=== PATIENT | male | born 1990 | race Caucasian/White ===

== ENCOUNTER 2024-08-09 08:41 | Emergency (ER) | payer OTHER, SELFPAY ==
[2024-08-09 08:43] VITALS: BP 137/96; PULSE 81; RESP 16; TEMP 36.6; O2SAT 97
--- NOTE | 2024-08-09 08:57 | ED_ITS ---
HPI - Wound/Laceration General Chief Complaint: Wound/Laceration Stated Complaint: cut to right side cheek Time Seen by Provider: 08/09/24 08:44 Source: patient Mode of arrival: ambulatory Limitations: no limitations History of Present Illness HPI narrative: This is a 34-year-old male, with no significant past medical history, the apartment complaining of laceration of face. States he was pulling a spring with pliers, when they came free and struck him on the face, below the right eye. He denies eye injury or loss of consciousness. He complains of 6/10 dull pain. He has no other complaints at this time. Related Data Allergies Allergy/AdvReac Type Severity Reaction Status Date / Time No Known Allergies Allergy Verified 08/09/24 08:44 Review of Systems Review of Systems: All systems reviewed & are unremarkable except as noted in HPI and below PMFSH Past Medical History Medical History No significant past medical history Surgical History Surgical History No significant past surgical history Social History Social History Smoking status: Never smoker Alcohol intake: current Substance use: never Exam Narrative: GENERAL: Well-developed, well-nourished, and in no acute distress. HEAD: Normocephalic, There is a 1 cm laceration of the right face approximately 5 cm inferior to the right eye, just lateral to the nose. There is no palpable step-off or crepitus.. EYES: PERRLA and EOMI. ENT: Nares clear, no rhinorrhea or epistaxis. Mucous membranes moist. Oropharynx without tonsillar hypertrophy exudate or other lesions. CHEST: Clear to auscultation. No respiratory distress. No wheezes rales or rhonchi HEART: Regular rate and rhythm. No murmur heard. Normal peripheral pulses. EXTREMITIES: Normal range of motion. No edema. SKIN: Warm, dry, no rash. NEURO: Alert and oriented x3. No focal deficit. Moving all 4 limbs spontaneously PSYCH: Normal mood and affect. Course Course Emergency Course: 08:57 - The patient's laceration was cleaned and closed with skin glue. I do not suspect facial fracture. The patient's extraocular muscles are. He was given a tetanus vaccination. Will discharge with recommendation for primary care follow-up. I discussed the findings and recommendations with the patient. Discussed return and emergency precautions including signs/symptoms of wound infection and deep space facial infection. The patient voiced understanding and agreement with the plan. All questions answered to his satisfaction. Vital Signs Vital signs: Vital Signs Temperature 97.9 F 08/09/24 08:43 Pulse Rate 81 08/09/24 08:43 Respiratory Rate 16 08/09/24 08:43 Blood Pressure 137/96 H 08/09/24 08:43 Pulse Oximetry 97 08/09/24 08:43 Oxygen Delivery Room Air 08/09/24 08:43 Temperature 97.9 F 08/09/24 08:43 Pulse Rate 81 08/09/24 08:43 Respiratory Rate 16 08/09/24 08:43 Blood Pressure 137/96 H 08/09/24 08:43 Pulse Oximetry 97 08/09/24 08:43 Oxygen Delivery Room Air 08/09/24 08:43 Procedures Laceration Laceration 1: Date: 08/09/24 Time: 08:45 Site: face Side (If applicable): right Size (cm): 1 Description: linear and clean Depth: simple, single layer Local Anesthetic: none Pre-repair: wound explored and irrigated ====== Skin Level ====== Skin layer closed with: dermabond ====== Subcutaneous Layer ====== ====== Muscle Layer ====== ====== Tendon Layer ====== MDM - Wound/Laceration MDM Narrative Medical decision making narrative: Plan: Laceration repair, tetanus vaccination, pain control, reassess Differential Diagnosis Differential diagnosis: Likely laceration, abrasion and other ( contusion, other) Discharge Plan Discharge Clinical Impression: Laceration Patient Disposition: Home Condition: Stable Instructions: Antibiotic Form, Laceration (ED), Skin Adhesive Care (ED) Additional Instructions: You were seen in the emergency department. Your laceration was closed with skin glue. You were given tetanus vaccination. I recommend following up with your primary care doctor in 1-2 weeks for wound re-evaluation. If you develop Rapidly spreading redness with increasing pain and fevers, significant facial swelling and pain, or if you have other emergent concerns for life, limb, or eyesight, return to the emergency department. Patient Language: [place] Follow-up/Referrals: Suzie Romero, DO [Other] - 2 Weeks UNKNOWN,DOCTOR [Non-Staff] - Time of Disposition: 08:58
[2024-08-09] MEDS: TETANUS,DIPHTHERIA,AC PERTUSSIS ADULT 0.5 ML (ADACEL) IM (09:14)
== END 2024-08-09 09:23 | disposition home or self-care (01) ==
LOC: CHSED 09:27
PROVIDERS: Emergency Provider Preventive Medicine Aerospace Medicine; Referring Provider Internal Medicine
DX: S01.81XA Laceration without foreign body of other part of head, initial encounter (principal); Z23 Encounter for immunization; W22.8XXA Striking against or struck by other objects, initial encounter
CPT/HCPCS: 12011; 90471; 90715; 99282